=== PATIENT | male | born 1945 | race Caucasian/White ===

== ENCOUNTER → 2020-04-07 | Outpatient (CLI) | payer OTHER | LOC: LAB SHORT 10:35 → LAB 10:35 | DX: L08.9 Local infection of the skin and subcutaneous tissue, unspecified (principal); L23.9 Allergic contact dermatitis, unspecified cause; B00.1 Herpesviral vesicular dermatitis; L08.1 Erythrasma | CPT/HCPCS: 87070; 87077; 87186; 87205 ==

== ENCOUNTER → 2020-05-05 | Outpatient (CLI) | payer OTHER | LOC: LAB 15:40 → LAB SHORT 15:40 | DX: L08.9 Local infection of the skin and subcutaneous tissue, unspecified (principal); R21 Rash and other nonspecific skin eruption; B35.3 Tinea pedis | CPT/HCPCS: 87070; 87205 ==

== ENCOUNTER → 2020-10-06 | Outpatient (CLI) | payer OTHER | LOC: LAB SHORT 11:10 → LAB 11:10 | DX: D22.61 Melanocytic nevi of right upper limb, including shoulder (principal); D22.62 Melanocytic nevi of left upper limb, including shoulder; L08.1 Erythrasma; L57.8 Other skin changes due to chronic exposure to nonionizing radiation; L81.4 Other melanin hyperpigmentation; L85.3 Xerosis cutis; Z71.89 Other specified counseling | CPT/HCPCS: 87070; 87077; 87186; 87205 ==

== ENCOUNTER 2022-04-03 14:55 | Emergency (ER) | payer OTHER ==
[~2022-04-03] VITALS: Ht 180.3 cm; Wt 115.7 kg
[2022-04-03 15:48] LABS: BASOPHILS ABSOLUTE AUTO 0.08 K/mm3 (0.00-0.23); BASOPHILS PERCENT AUTO 1 % (0-2); EOSINOPHILS ABSOLUTE AUTO 0.43 K/mm3 (0.00-0.68); EOSINOPHILS PERCENT AUTO 6 % (0-6); Hematocrit 44.1 % (37.0-53.0); Hemoglobin 14.9 g/dL (13.5-17.5); IMMATURE GRAN ABSOLUTE AUTO 0.01 K/mm3 (0.00-0.10); IMMATURE GRAN PERCENT AUTO 0 % (0-1); LYMPHOCYTES ABSOLUTE AUTO 1.76 K/mm3 (0.84-5.20); LYMPHOCYTES PERCENT AUTO 23 % (21-46); MONOCYTES ABSOLUTE AUTO 0.64 K/mm3 (0.16-1.47); MONOCYTES PERCENT AUTO 9 % (4-13); Mean Corpuscular HGB 38.1 pg (26.0-34.0); Mean Corpuscular HGB Conc 33.8 g/dL (31.5-36.5); Mean Corpuscular Volume 113 fL (80-100); Mean Platelet Volume 9.8 fL (9.1-12.4); NEUTROPHILS ABSOLUTE AUTO 4.64 K/mm3 (1.96-9.15); NEUTROPHILS PERCENT AUTO 61 % (41-73); NRBC ABSOLUTE 0.02 K/mm3 (0.00-0.02); NRBC Auto 0.3 /100 WBC (0.0-0.2); Platelet Count 245 K/mm3 (150-400); RDW Coefficient Variation 15.9 % (11.7-14.2); Red Blood Cell Count 3.91 M/mm3 (4.30-5.90); White Blood Cell Count 7.56 K/mm3 (4.00-11.30)
[2022-04-03 16:03] LABS: Albumin, Blood 2.3 g/dL (3.4-5.0); Albumin/Globulin Ratio 0.4 (0.8-1.8); Bilirubin, Total 2.2 mg/dL (0.1-1.0); Bun/Creatinine Ratio 15.7 (12.0-20.0); Creatinine, Blood 1.02 mg/dL (0.60-1.20); Globulin, Blood 5.3 g/dL (2.2-4.0); Potassium, Blood 4.2 mmol/L (3.5-5.5); Total Protein, Blood 7.6 g/dL (6.4-8.2)
[2022-04-03] MEDS ORDERED: TIOT18 INH (16:50)
[2022-04-03] MEDS ORDERED: ELIQUIS5 M2 PO (16:51)
[2022-04-03] MEDS ORDERED: Ventolin/Prove6.7 GM INH (16:51)
[2022-04-03] MEDS ORDERED: TAMS.4ER PO (16:51)
[2022-04-03] MEDS ORDERED: Lasix20 MG PO (17:31)
[2022-04-03] MEDS ORDERED: Aldactone50 MG PO (17:31)
== END 2022-04-03 19:28 | disposition home or self-care (01) ==
LOC: ER 14:55
PROVIDERS: Student in an Organized Health Care Education/Training Program
DX: E88.09 Other disorders of plasma-protein metabolism, not elsewhere classified (principal); K74.60 Unspecified cirrhosis of liver; R18.8 Other ascites; J44.9 Chronic obstructive pulmonary disease, unspecified; E78.5 Hyperlipidemia, unspecified; Z87.891 Personal history of nicotine dependence; Z86.73 Personal history of transient ischemic attack (TIA), and cerebral infarction without residual deficits; Z79.01 Long term (current) use of anticoagulants
CPT/HCPCS: 36415; 71046; 76705; 80053; 83880; 84484; 85025; 93005; 93010; 93971; 96374; 99285-25; A9270; J1940